=== PATIENT | female | born 1985 ===

== ENCOUNTER 2020-04-23 18:27 | Emergency (ER) | payer MEDICAID ==
--- NOTE | 2020-04-23 18:39 | NUR ---
NO ANSWER X 1
--- NOTE | 2020-04-23 19:06 | NUR ---
NOT INLOBBY WHEN CALLED TO TRIAGE
--- NOTE | 2020-04-23 19:57 | NUR ---
PT NOT IN LOBBY OR RESTROOM WHEN CALLED TO TRIAGE FOR 3RD TIME
== END 2020-04-23 19:59 | disposition left against medical advice (07) ==
LOC: ED 19:52
DX: R06.02 Shortness of breath (principal); Z53.21 Procedure and treatment not carried out due to patient leaving prior to being seen by health care provider